=== PATIENT | female | born 1945 | race Caucasian/White ===

== ENCOUNTER 2021-12-10 13:22 | Outpatient (CLI) | payer MEDICARE | END 2021-12-10 13:23 | disposition home or self-care (01) | LOC: CSHCT 13:22 | PROVIDERS: ATTEND Orthopaedic Surgery | DX: S72.141D Displaced intertrochanteric fracture of right femur, subsequent encounter for closed fracture with routine healing (principal); M81.0 Age-related osteoporosis without current pathological fracture ==

== ENCOUNTER 2022-06-22 13:06 | Outpatient (CLI) | payer MEDICARE | END 2022-06-22 13:07 | disposition home or self-care (01) | LOC: CSHRAD 13:06 | PROVIDERS: ATTEND Internal Medicine Hematology & Oncology | DX: M79.671 Pain in right foot (principal); M89.9 Disorder of bone, unspecified ==